=== PATIENT | female | born 1975 | race African-American/Black ===

== ENCOUNTER 2017-11-10 07:45 | Observation (INO) | payer OTHER ==
[~2017-11-10 07:45] MED LIST: CEFAZOLIN 2 GM/50 ML (PMX) 50 ML IVPB; SOD CHLORIDE 0.9% 1,000 ML IV
[2017-11-10] MEDS ORDERED: MIDAZOLAM 1 MG/ML 2 ML INJ (16:46)
[2017-11-10] MEDS ORDERED: FENTAnyl 50 MCG/ML VIAL (16:46)
[2017-11-10] MEDS ORDERED: LIDOCAINE 2% (SDV) 5 ML INJ (17:36)
[2017-11-10] MEDS ORDERED: PROPOFOL 20 ML (17:36)
[2017-11-10] MEDS ORDERED: CEFAZOLIN 1 GM INJ (17:37)
[2017-11-10] MEDS ORDERED: ONDANSETRON 4 MG INJ (17:37)
[2017-11-10] MEDS ORDERED: MEPERIDINE 25 MG INJ IV (18:00)
[2017-11-10] MEDS ORDERED: FENTAnyl 50 MCG/ML VIAL IV (18:00)
[2017-11-10] MEDS ORDERED: ONDANSETRON 4 MG INJ IV ×2 (18:00)
[2017-11-10] MEDS ORDERED: HYDROmorphONE (0.2 MG/ML) 10ML SYG IV (18:00)
[2017-11-10] MEDS ORDERED: DIPHENHYDRAMINE 50 MG INJ IV (18:00)
[2017-11-10] MEDS: HYDROmorphONE (0.2 MG/ML) 10ML SYG IV (18:15)
[2017-11-10] MEDS: ACETAMINOPHEN 1000MG/100ML IV 100 ML IVPB (18:16)
[2017-11-10] MEDS: morphine 2 MG INJ IV (20:05)
[2017-11-10] MEDS: D5W-0.45 NACL + KCL 20 MEQ 1,000 ML IV (21:41)
[2017-11-11] MEDS: morphine 2 MG INJ IV ×3 (00:09→08:47)
[2017-11-11] MEDS: D5W-0.45 NACL + KCL 20 MEQ 1,000 ML IV ×2 (01:45→06:45)
== END 2017-11-11 13:00 | disposition home or self-care (01) ==
LOC: SDS 07:45 → REC 17:45 → MS2 19:00
DX: C50.911 Malignant neoplasm of unspecified site of right female breast (principal); C79.89 Secondary malignant neoplasm of other specified sites; E66.01 Morbid (severe) obesity due to excess calories; Z68.27 Body mass index [BMI] 27.0-27.9, adult; M19.90 Unspecified osteoarthritis, unspecified site; Z17.1 Estrogen receptor negative status [ER-]
CPT/HCPCS: 19120; 88307

== ENCOUNTER 2017-12-30 09:12 | Inpatient (IN) | payer OTHER ==
[~2017-12-30 09:12] MED LIST changes: +CEFAZOLIN 1 GM INJ; -CEFAZOLIN 2 GM/50 ML (PMX) 50 ML IVPB; +ROCURONIUM 50 MG INJ; -SOD CHLORIDE 0.9% 1,000 ML IV; +SUCCINYLCHOLINE CHLORIDE 100 MG/5 ML SYG IV
[2017-12-30 12:02] LABS: ADD MAN DIFF? NO
[2017-12-30 12:15] LABS: BASOPHILS % 0.7 % (0.0-2.0); EOSINOPHILS # 0.1 10^3/ul (0.0-0.5); EOSINOPHILS % 1.7 % (0.0-7.0); HEMATOCRIT 34.6 % (37.0-47.0); HEMOGLOBIN 11.8 g/dl (12.0-16.0); LYMPHOCYTES # 2.1 10^3/ul (0.8-2.9); LYMPHOCYTES % 35.8 % (15.0-51.0); MEAN CORPUSCULAR HEMOGLOBIN 30.2 pg (29.0-33.0); MEAN CORPUSCULAR HGB CONC 34.1 g/dl (32.0-37.0); MEAN CORPUSCULAR VOLUME 88.5 fl (82.0-101.0); MEAN PLATELET VOLUME 11.2 fl (7.4-10.4); MONOCYTE # 0.5 10^3/ul (0.3-0.9); MONOCYTES % 8.7 % (0.0-11.0); NEUTROPHILS % 52.9 % (39.0-77.0); PLATELET COUNT 152 10^3/UL (140-415); RED BLOOD COUNT 3.91 10^6/ul (4.20-5.40); RED CELL DISTRIBUTION WIDTH 12.5 % (11.5-14.5)
[2017-12-30 12:15] LABS: WHITE BLOOD COUNT 5.7 10^3/ul (4.8-10.8)
[2017-12-30 12:23] LABS: ALANINE AMINOTRANSFERASE 39 IU/L (13-69); ALBUMIN 4.4 g/dl (3.3-4.9); ALBUMIN/GLOBULIN RATIO 1.25; ALKALINE PHOSPHATASE 81 IU/L (42-121); ANION GAP 17 (8-16); ASPARTATE AMINO TRANSFERASE 31 IU/L (15-46); BILIRUBIN,INDIRECT 0.6 mg/dl (0-1.1); BILIRUBIN,TOTAL 0.6 mg/dl (0.2-1.3); CARBON DIOXIDE 28 mmol/L (21-31); CHLORIDE 107 mmol/L (97-110); GLUCOSE 78 mg/dl (70-220); TOTAL PROTEIN 7.9 g/dl (6.1-8.1)
[2017-12-30 12:27] LABS: BLOOD UREA NITROGEN 16 mg/dl (7-20); CALCIUM 9.7 mg/dl (8.4-10.2); CREATININE 0.74 mg/dl (0.44-1.00); POTASSIUM 4.2 mmol/L (3.5-5.1); SODIUM 148 mmol/L (135-144)
[2017-12-30 12:42] LABS: INR 1.04; PROTIME 13.7 Sec (11.9-14.9); PT RATIO 1.1
[2017-12-30 12:43] LABS: PARTIAL THROMBOPLASTIN TIME 30.2 Sec (25.0-35.0)
[2017-12-30] MEDS ORDERED: SOD CHLORIDE 0.9% 1,000 ML IV (13:00)
[2017-12-30] MEDS: CEFAZOLIN 2 GM/50 ML (PMX) 50 ML IVPB (13:00)
[2017-12-30] MEDS ORDERED: ONDANSETRON 4 MG INJ IV ×2 (14:00)
[2017-12-30] MEDS ORDERED: FENTAnyl 50 MCG/ML VIAL IV ×2 (14:00)
[2017-12-30] MEDS ORDERED: NALOXONE (0.4 MG/ML) INJ IV (14:00)
[2017-12-30] MEDS ORDERED: DIPHENHYDRAMINE 50 MG INJ IV ×2 (14:00)
[2017-12-30] MEDS ORDERED: morphine (1 MG/ML) 10ML SYRINGE IV ×2 (14:00)
[2017-12-30] MEDS ORDERED: ACETAMINOPHEN 500 MG TAB PO (14:00)
[2017-12-30] MEDS ORDERED: MEPERIDINE 25 MG INJ IV (14:00)
[2017-12-30] MEDS ORDERED: PROPOFOL 20 ML (14:37)
[2017-12-30] MEDS ORDERED: DEXAMETHASONE 4 MG/ML 1 ML INJ (14:37)
[2017-12-30] MEDS ORDERED: FENTAnyl 50 MCG/ML VIAL (14:37)
[2017-12-30] MEDS ORDERED: MIDAZOLAM 1 MG/ML 2 ML INJ (14:37)
[2017-12-30] MEDS ORDERED: ACETAMINOPHEN 1000MG/100ML IV 100 ML (14:37)
[2017-12-30] MEDS ORDERED: LIDOCAINE 1% (MDV) 20 ML INJ (14:37)
[2017-12-30] MEDS ORDERED: ONDANSETRON 4 MG INJ (14:37)
[2017-12-30] MEDS ORDERED: FAMOTIDINE 20 MG INJ (15:25)
[2017-12-30] MEDS ORDERED: HYDROmorphONE 2 MG/ML SYG (15:44)
[2017-12-30] MEDS ORDERED: SUGAMMADEX SODIUM 200 MG/2 ML VIAL IV (15:45)
[2017-12-30] MEDS ORDERED: METOCLOPRAMIDE 10 MG INJ (16:50)
[2017-12-30] MEDS ORDERED: morphine 2 MG INJ IV (17:00)
[2017-12-30] MEDS ORDERED: ACETAMINOPHEN 1000MG/100ML IV 100 ML IVPB (17:00)
[2017-12-30] MEDS: HYDROmorphONE 0.2 MG/ML PCA IV (17:09)
[2017-12-30] MEDS: D5W-0.45 NACL + KCL 20 MEQ 1,000 ML IV (18:54)
[2017-12-31] MEDS: D5W-0.45 NACL + KCL 20 MEQ 1,000 ML IV ×5 (00:50→23:20)
[2017-12-31] MEDS: ONDANSETRON 4 MG INJ IV (05:20)
[2017-12-31 05:46] LABS: WHITE BLOOD COUNT 8.5 10^3/ul (4.8-10.8)
[2017-12-31 05:46] LABS: ADD MAN DIFF? NO; BASOPHILS % 0.1 % (0.0-2.0); HEMATOCRIT 33.5 % (37.0-47.0); HEMOGLOBIN 11.3 g/dl (12.0-16.0); LYMPHOCYTES % 12.3 % (15.0-51.0); MEAN CORPUSCULAR HEMOGLOBIN 29.4 pg (29.0-33.0); MEAN CORPUSCULAR HGB CONC 33.7 g/dl (32.0-37.0); MEAN CORPUSCULAR VOLUME 87.2 fl (82.0-101.0); MEAN PLATELET VOLUME 11.5 fl (7.4-10.4); MONOCYTE # 0.4 10^3/ul (0.3-0.9); MONOCYTES % 4.4 % (0.0-11.0); PLATELET COUNT 155 10^3/UL (140-415); RED BLOOD COUNT 3.84 10^6/ul (4.20-5.40); RED CELL DISTRIBUTION WIDTH 12.4 % (11.5-14.5)
[2017-12-31 06:17] LABS: ANION GAP 13 (8-16); BLOOD UREA NITROGEN 11 mg/dl (7-20); CALCIUM 9.4 mg/dl (8.4-10.2); CARBON DIOXIDE 25 mmol/L (21-31); CHLORIDE 106 mmol/L (97-110); CREATININE 0.67 mg/dl (0.44-1.00); GLUCOSE 123 mg/dl (70-220); POTASSIUM 4.3 mmol/L (3.5-5.1); SODIUM 140 mmol/L (135-144)
[2017-12-31] MEDS ORDERED: HYDROCODONE/APAP (5/325) TAB PO (11:30)
[2017-12-31] MEDS: HYDROCODONE/APAP (5/325) TAB PO ×2 (12:10→22:31)
[2018-01-01 05:12] LABS: ADD MAN DIFF? NO
[2018-01-01 05:18] LABS: BASOPHILS % 0.5 % (0.0-2.0); EOSINOPHILS # 0.1 10^3/ul (0.0-0.5); EOSINOPHILS % 0.8 % (0.0-7.0); HEMATOCRIT 31.3 % (37.0-47.0); HEMOGLOBIN 10.4 g/dl (12.0-16.0); LYMPHOCYTES # 2.8 10^3/ul (0.8-2.9); LYMPHOCYTES % 43.6 % (15.0-51.0); MEAN CORPUSCULAR HEMOGLOBIN 29.8 pg (29.0-33.0); MEAN CORPUSCULAR HGB CONC 33.2 g/dl (32.0-37.0); MEAN CORPUSCULAR VOLUME 89.7 fl (82.0-101.0); MEAN PLATELET VOLUME 10.8 fl (7.4-10.4); MONOCYTE # 0.5 10^3/ul (0.3-0.9); MONOCYTES % 7.3 % (0.0-11.0); NEUTROPHIL # 3.1 10^3/ul (1.6-7.5); NEUTROPHILS % 47.5 % (39.0-77.0); PLATELET COUNT 128 10^3/UL (140-415); RED BLOOD COUNT 3.49 10^6/ul (4.20-5.40); RED CELL DISTRIBUTION WIDTH 12.5 % (11.5-14.5)
[2018-01-01 05:18] LABS: WHITE BLOOD COUNT 6.4 10^3/ul (4.8-10.8)
[2018-01-01] MEDS ORDERED: morphine LIQ (10 MG/5 ML) CUP PO (15:30)
== END 2018-01-01 15:07 | disposition home or self-care (01) | DRG 581 ==
LOC: REC 09:12 → MS1 18:16
PROC: 0HTT0ZZ Resection of Right Breast, Open Approach (ICD-10-PCS; principal; 2017-12-30 14:00)
PROC: 0KT Muscles, Resection (ICD-10-PCS; 2017-12-30 14:00)
DX: C50.911 Malignant neoplasm of unspecified site of right female breast (principal)
CPT/HCPCS: 80048; 80053; 84703; 85025; 85610; 85730; 88309